=== PATIENT | male | born 1960 | race Caucasian/White ===

== ENCOUNTER → 2023-09-04 11:27 | Outpatient (REF) | payer OTHER, SELFPAY | LOC: HWRAD 11:27 | PROVIDERS: ATTENDING PHYSICIAN Nurse Practitioner Family | DX: R06.09 Other forms of dyspnea (principal) | CPT/HCPCS: 71046 ==

== ENCOUNTER 2025-04-05 11:38 | Emergency (ER) | payer MEDICARE, SELFPAY ==
[2025-04-05 11:40] VITALS: BP 147/88
[2025-04-05 12:09] LABS: Hematocrit 38.1 % (39.0-52.0); Hemoglobin 12.5 g/dL (13.0-18.0); Mean Corp Hgb Conc. 32.8 g/dL (33.0-37.0); Mean Corpuscular Volume 86.4 fL (80.0-94.0); Nucleated Red Blood Cells % 0 % (-); Platelet Count 329 10^3/uL (130-400); Red Cell Dist. Width 13.2 % (11.5-14.5)
[2025-04-05 12:24] LABS: ALT (SGPT) 22 U/L (0-50); AST (SGOT) 21 U/L (17-59); Albumin 3.9 g/dl (3.5-5.0); Alkaline Phosphatase 94 U/L (38-126); Blood Urea Nitrogen 20 mg/dl (9-20); Calcium 9.0 mg/dl (8.4-10.2); Carbon Dioxide 25 mmol/L (22-30); Chloride 105 mmol/L (98-107); Glucose 141 mg/dl (70-99); Potassium 4.1 mmol/L (3.5-5.1); Sodium 138 mmol/L (135-145); Total Protein 7.1 g/dl (6.3-8.2); eGFR > 60.00
[2025-04-05] MEDS: KEFLEX 500 MG PO (13:19)
[2025-04-05] MEDS: BACTRIM DS 800 MG/160 MG 2 TABLET PO (13:19)
--- NOTE | 2025-04-05 14:16 | ED.GENMED ---
History of Present Illness
General
Chief Complaint: Skin Problem
Source: patient
Exam Limitations: none
Time Seen by Provider: 04/05/25 12:19
Nursing documentation reviewed up to this point in time: agreed with
History of Present Illness
History of Present Illness:
65-year-old male past med history of kidney stones presenting to the emergency department today with concerns of left elbow swelling after what he believes was a bug bite few days ago. Has noticed increased swelling and discomfort to the area
recently. Denies any fevers or systemic symptoms.
Past History
Past History
ED Past Medical History: Other (Kidney stones)
ED Past Surgical History: None
Social History
Tobacco: Smoker
Alcohol: Daily
Drug: None
Living: with family
Employment: Employed
Review of Systems
Review of Systems
Allergies reviewed?: Yes
All Other Systems: ROS reviewed and negative except as documented in HPI and ROS
Phy Exam
Physical Exam
Physical Exam:
GENERAL: Alert , in no apparent distress
EYE: pupils equal and reactive
NECK: Supple, no significant adenopathy.
ENT: o/p clr, mmm.
CARDIAC: Regular rate and rhythm .
LUNGS: Clear breath sounds bilaterally, no acute respiratory distress, no wheezes/rales/rhonchi
ABDOMEN: Soft, without focal tenderness, no r/g, no cvat
NEUROLOGICAL: Alert and oriented, no focal neuro deficits
SKIN: Redness and swelling overlying the left posterior arm region just proximal to the olecranon with surrounding redness there is a central area of fluctuance and induration of roughly 2.5 cm in size warm and dry, skin intact.
MUSCULOSKELETAL: No edema, well perfused.
PSYCH: Normal and appropriate interaction.
Course
Orders/Labs/Results
Orders:
Orders
04/05/25 11:43
Electrocardiogram (*1) Urgent
Reason for Study: Other
Other Reason for Exam: Possible Sepsis
EKG- Treatment ONCE
IV Insert/Care/Rem.- Treatment PRN
Urinalysis Reflex To Culture Urgent
Date Specimen was Collected: 04/05/25
Time Specimen was Collected: 11:43
04/05/25 11:54
Complete Blood Count/With Diff Urgent
Comprehensive Metabolic Panel Urgent
Lactic Acid Q4H
Comment: ON ICE, CANCEL 2ND ORDER IF FIRST LACTIC ACID LEVEL <2
Blood Culture Q20M
TATE Source: Blood/Venous
Specimen Description:
Comment: Urgent from separate sites. If patient screens positive for possible sepsis
04/05/25 12:05
Blood Culture Q20M
TATE Source: Blood/Venous
Specimen Description:
Comment: Urgent from separate sites. If patient screens positive for possible sepsis
04/05/25 12:44
Cephalexin Monohydrate [Keflex] 500 mg PO NOW STA
Sulfamethox./Trimethoprim Ds [Bactrim Ds 800 mg/160 mg] 2 tablet PO NOW STA
Abnormal Lab Results
04/05/25
11:54
WBC 18.4 H 10^3/uL
(4.8-10.8)
RBC 4.41 L 10^6/uL
(4.70-6.10)
Hgb 12.5 L g/dL
(13.0-18.0)
Hct 38.1 L %
(39.0-52.0)
MCHC 32.8 L g/dL
(33.0-37.0)
Abs Immat Gran (auto) 0.1 H 10^3/uL
(0-0.05)
Absolute Neuts (auto) 15.6 H 10^3/uL
(1.4-6.5)
Absolute Monos (auto) 0.8 H 10^3/uL
(0.1-0.6)
Neutrophils % 84.7 H %
(42.2-75.2)
Lymphocytes % 10.0 L %
(20.5-51.1)
Glucose 141 H mg/dl
(70-99)
04/05/25 11:54
04/05/25 11:54
Vital Signs
Initial and Last Documented VS:
Initial Vital Signs
Temp Pulse Resp BP Pulse Ox
98.3 F 105 17 147/88 96
04/05/25 11:40 04/05/25 11:40 04/05/25 11:40 04/05/25 11:40 04/05/25 11:40
Last Documented Vital Signs
Temp Pulse Resp BP Pulse Ox
98.3 F 105 17 147/88 96
04/05/25 11:40 04/05/25 11:40 04/05/25 11:40 04/05/25 11:40 04/05/25 11:40
Procedures
Incision/Drainage/Joint Aspiration
Left Middle Posterior Arm:
Anethesia: 1% Lidocaine with Epi
Preparation: cleaned with alcohol wipe
Type of procedure: incise and drain
Nature of site: abscess
Description of abscess: greater than 3cm
Loculations broken up: Yes
How much fluid was obtained?: large amount
Fluid description: purulent
Treatment: left open for drainage
MDM/Problems Addressed
MDM/Problems Addressed:
65-year-old male presenting to the emergency department today with concerns of an abscess thinks this started from a bug bite. Ongoing for the last few days. Area of fluctuance induration roughly 3 cm in size just proximal to the left olecranon
region. Does not include the olecranon. This was incised and drained with moderate amount of purulent drainage. Symptoms significant improved after drainage. There is an area surrounding of redness surrounding the area roughly 5 cm in additional
radius. It was recommended to be admitted to the hospital considering the proximity to the elbow joint the elevated white count and moderate-sized redness. He adamantly refused to be admitted and was requesting outpatient antibiotics. He claims
that he would immediately returned for any worsening of symptoms. He demonstrated understanding of the potential risk.
*Pulse Oximetry
SaO2: 96
Oxygen Mode of Delivery: Room air
Patient hypoxic: no (96)
*Critical Care Note
Total Time (30-74mins, 75-104mins- exclusive of procedures): Not Applicable
ED Attending Note
-
Portions of this chart may have been created with voice recognition software.� Occasional wrong word or��sound alike� substitutions may have occurred due to the inherent limitations of voice recognition software.
Discharge Plan
Departure
Patient Disposition: Home (Routine Discharge)
Date of Disposition: 04/05/25
Time of Disposition: 14:21
Patient with high blood pressure during this ER visit?: No
Condition: Good
Covid-19: Not Applicable
Discharge Problem:
Abscess of arm
Instructions: Skin Abscess
Prescriptions:
New
cephalexin 500 mg capsule
500 mg PO QID 5 Days Qty: 20 0RF
sulfamethoxazole-trimethoprim [Bactrim DS] 800-160 mg tablet
1 tab PO BID 5 Days Qty: 10 0RF
No Action
tamsulosin 0.4 MG capsule
0.4 mg PO DAILY Qty: 15 0RF
hydrocodone-acetaminophen [Vicodin] 1 EACH tablet
1 - 2 ea PO Q4HPRN PRN (Reason: pain) Qty: 12 0RF
Referrals:
Saurav Nicole CRNP [Family Provider, Family Practice]
Activity Restrictions/Additional Instructions:
You came to the emergency department today with concerns of an arm infection. Please keep the area clean covered and use warm compresses to the area a few times daily to ensure ongoing purulent drainage. Otherwise take the prescribed antibiotics
and follow close with the primary care doctor within the next week. Return immediately for any worsening, new or concerning symptoms.
Interventions
Interventions:
*Risk Screen - Suicide Last Done: 04/05/25 11:40
*General Assessment Last Done: 04/05/25 11:40
*Neglect/Abuse Screening Last Done: 04/05/25 11:40
*ED COVID-19 Vaccine History Last Done: 04/05/25 11:40
ED-Skin Assessment Last Done: 04/05/25 12:35
Discharge Date and Time
Print Language: SLOVENIAN
== END 2025-04-05 14:27 | disposition home or self-care (01) ==
LOC: EMR 11:38
PROVIDERS: Emergency Medicine; EMERGENCY PHYSICIAN Student in an Organized Health Care Education/Training Program; FAMILY PHYSICIAN Nurse Practitioner Family
DX: L02.414 Cutaneous abscess of left upper limb (principal); F17.200 Nicotine dependence, unspecified, uncomplicated
CPT/HCPCS: 10060; 99284; 80053; 83605; 85025; 87040; 93005